=== PATIENT | female | born 1980 | race Caucasian/White ===

== ENCOUNTER 2018-04-18 17:43 | Emergency (ER) | payer SELFPAY ==
--- NOTE | 2018-04-18 17:55 | UC ---
Abdominal Pain Female HPI - HPI Summary HPI Summary: 37 yo female presents with RLQ pain that began this morning up waking. She tells me that this morning she had a mild ache in her RLQ that has worsened throughout the day. She was driving home from work and noticed that turning the wheel or hitting bumps on the road increased her pain. Standing up straight also worsens her pain. She has not had any fever, nausea, or vomiting. She has ate and drank today without issue. Endorses some loose stools yesterday, but a normal BM today. Has not taken anything for pain. Denies fever, chills, SOB, chest pain, n/v/d/c, dysuria, flank pain. - History of Current Complaint Stated Complaint: ABDOMINAL PAIN Time Seen by Provider: 04/18/18 17:55 Hx Obtained From: Patient Onset/Duration: Sudden Onset Severity Initially: Moderate Severity Currently: Severe Pain Intensity: 9 Pain Scale Used: 0-10 Numeric Location: Discrete At: RLQ Radiates: No Allergies/Adverse Reactions: Allergies Allergy/AdvReac Type Severity Reaction Status Date / Time No Known Allergies Allergy Verified 04/18/18 18:07 Home Medications: Home Medications NK [No Home Medications Reported] 04/18/18 [History Confirmed 04/18/18] PMH/Surg Hx/FS Hx/Imm Hx - Additional Past Medical History Additional PMH: None - Surgical History Surgical History: None - Family History Known Family History: Positive: None - Social History Occupation: Employed Full-time Lives: With Family Alcohol Use: Occasionally Substance Use Type: None Smoking Status (MU): Never Smoked Tobacco Review of Systems Constitutional: Negative Skin: Negative Respiratory: Negative Cardiovascular: Negative Gastrointestinal: Abdominal Pain Genitourinary: Negative Neurological: Negative Psychological: Negative All Other Systems Reviewed And Are Negative: Yes Physical Exam - Summary Physical Exam Summary: GENERAL: NAD. WDWN. No pain distress. SKIN: No rashes, sores, lesions, or open wounds. NECK: Supple. Nontender. No lymphadenopathy. CHEST: CTAB. No r/r/w. No accessory muscle use. Breathing comfortably and in no distress. CV: RRR. Without m/r/g. Pulses intact. Cap refill <2seconds ABDOMEN: Moderate to severe RLQ TTP. Mild guarding RLQ. Strongly positive psoas and obturator sign. Negative heel strike. No distention. No CVA tenderness. Bowel sounds present NEURO: Alert. PSYCH: Age appropriate behavior. Triage Information Reviewed: Yes Vital Signs: Vital Signs: Temp Pulse Resp BP Pulse Ox 97.3 F 97 16 132/74 100 04/18/18 17:56 04/18/18 17:56 04/18/18 17:56 04/18/18 17:56 04/18/18 17:56 Vital Signs Reviewed: Yes Abd Pain Female Course/Dx - Course Course Of Treatment: Strong suspicion for appendicitis vs ovarian patholgy. Advised pt to be further evaluated in the ED. She declined ambulance and will have her friend drive her. - Differential Dx/Diagnosis Provider Diagnoses: RLQ pain Discharge - Sign-Out/Discharge Documenting (check all that apply): Patient Departure All imaging exams completed and their final reports reviewed: No Studies - Discharge Plan Condition: Stable Disposition: HOME-RECOMMEND TO ED Referrals: No Primary Care Phys,NOPCP [Primary Care Provider] - Additional Instructions: Please go to the ER for further evaluation of your RLQ pain - Billing Disposition and Condition Condition: STABLE Disposition: Home-Recommend to ED
[2018-04-18 18:07] VITALS: BP 132/74
== END 2018-04-18 18:12 | disposition home health service (06) ==
LOC: UCCORT 17:43
DX: R10.31 Right lower quadrant pain (principal)
CPT/HCPCS: 99202; G0463